=== PATIENT | female | born 1975 | race Caucasian/White ===

== ENCOUNTER → 2021-11-06 | Day surgery (SDC) | payer BC ==
[~2021-11-06] MED LIST: ACETAMINOPHEN 500 MG TAB ONE; CELECOXIB 100 MG CAPSULE ONE; CODEINE 30MG/APAP 300MG TAB ONE; FENTANYL CITR 100 MCG/2 ML ONE; GLYCOPYRROLATE 0.2 MG/ML SYR ONE; KETOROLAC 30 MG/ML INJ ONE; LIDOCAINE 1% MPF 5 ML VIAL ONE; MIDAZOLAM HCL 2 MG/2 ML INJ ONE; Mastisol Adhesive Liq ONE; NEOSTIGMINE 1 MG/ML -10 ML VIAL ONE; NS 0.9% VIAL 10 ML ONE; ONDANSETRON 4 MG/2 ML VIAL ONE; ROCURONIUM 50 MG/5 ML VIAL IV ONE; Ringers Lactate 1,000 ML IV ONE; dexAMETHasone 10 MG/ML VIAL ONE; propofoL 200 MG/20 ML VIAL IV ONE
--- NOTE | 2021-11-06 09:16 | RAD REPORT ---
EXAM DESCRIPTION: Charly Hinojosa (2 Views)11/06/2021 9:12 am CLINICAL HISTORY: Preop for gallbladder surgery. Hypertension COMPARISON: None FINDINGS: The lungs appear clear of acute infiltrate. The heart is normal size IMPRESSION: No acute abnormalities displayed
[2021-11-06 09:30] LABS: Absolute Lymphocytes (CBC) 1.6 K/uL (0.7-4.9); Albumin 3.4 g/dL (3.4-5.0); Bilirubin Direct 0.1 mg/dL (0-0.2); Bilirubin Total 0.6 mg/dL (0.2-1.0); Hematocrit 41.3 % (36.0-45.0); Lymphocytes % 17.7 % (15.3-44.8); MPV 8.3 fL (7.6-11.3); Potassium 4.3 mmol/L (3.5-5.1); Protein, Total 7.7 g/dL (6.4-8.2); RBC Red Blood Cell Count 4.54 M/uL (3.86-4.86)
[2021-11-06 09:45] LABS: SARS-CoV-2 Antigen Rapid Res Negative (Negative)
[2021-11-06] MEDS: CEFOXITIN SODIUM 1 GM/VIAL ONE ×2 (10:09→10:55)
[2021-11-06] MEDS: Ringers Lactate 1,000 ML IV ONE ×5 (11:26→11:40)
--- NOTE | 2021-11-06 11:28 | P.BOP ---
Preoperative diagnosis: symptomatic cholelithiasis Postoperative diagnosis: same Primary procedure: Laparoscopic cholecystectomy Electrical Manufacturing Technician: Yuliana Barajas (Rebecca) Estimated blood loss: <10cc Specimen: gb Findings: as above Anesthesia: General Complications: None Transferred to: Recovery Room Condition: Good
[2021-11-06 11:51] VITALS: O2SAT 100
--- NOTE | 2021-11-06 11:55 | DS ---
Diagnosis: Symptomatic cholelithiasis. Procedure: Laparoscopic cholecystectomy. Disposition: Home. Activity: As tolerated. No heavy lifting. Plan: Followup in my office in 1 week. Call for appointment at [phone]. Keep area dry for 48 hour s, then may shower. Keep Steri-Strips intact. Medications: See orders. DAHIANA/COLLINS Voice ID: [id number] Report ID: [id number]
--- NOTE | 2021-11-06 11:55 | OP ---
Date of Procedure: 11/06/2021 Surgeon: Kwaku Uriostegui MD Research Associate Quality Control Qc: Yuliana [place]. Preoperative Diagnosis: Symptomatic cholelithiasis. Postoperative Diagnosis: Symptomatic cholelithiasis. Procedure: Laparoscopic cholecystectomy Specimen: Gallbladder. Estimated Blood Loss: Less than 10 mL. Anesthesia: General plus local. Indication: This is the case of a 46-year-old patient, who comes to us with above diagnoses. Fully explained the benefits, alternatives, and risks of laparoscopic possible open cholecystectomy, which include, but not limited to infection, bleeding, damage to adjacent structures, anesthesia complicati on, choledocholithiasis, bile leak, pancreatitis, [place], and even . She also understands this may not relieve any symptoms. She may need more than one surgical intervention. She understood, signed a consent. Procedure In Detail: The patient was brought to the operating room, placed in supine position. Anes thesia was done without complication. Abdominal area was prepped and draped in the usual sterile fas hion. Marcaine 0.5% was injected for local anesthetic followed by sharp incision of the skin in the infraumbilical region. The incision was carried down to fascia, which was opened under direct vision . Peritoneum was encountered, opened under direct vision. Vicryl #1 placed inside the fascia. Dominick on trocar was carefully introduced. Pneumoperitoneum was obtained. I placed 3 more trocars, 5 mm ea ch one of them in the right upper quadrant under direct visualization. This allowed me to put a gras per in the fundus of the gallbladder, another grasper in the infundibulum retracting the gallbladder in the inferolateral fashion, exposing the triangle of Calot and obtaining critical view. Cystic farideh t and cystic artery were clearly isolated, freed circumferentially and a connection between those and the gallbladder were clearly identified. I proceeded to ligate those by using at least 3 clips prox imal, 1 clip distal, ligation in the middle. Same was done with the cystic artery. No bile leak. N o bleeding. The gallbladder was removed from liver using Bovie cauterizer and removed from abdominal cavity using EndoCatch through the umbilical incision. The area was inspected once again. No bile leak. No bleeding. At that moment, I proceeded to remove the trocars under direct vision. Deflated the pneumoperitoneum. Closed the fascia with #1 Vicryl. Irrigated subcutaneous tissue, closed that with 3-0 chromic and the skin with steffen. Sponge count and instrument counts correct. The patien t tolerated the procedure well. The patient was sent to recovery in stable condition. DAHIANA/COLLINS Voice ID: [id number] Report ID: [id number]
[2021-11-06 13:40] VITALS: BP 94/65; TEMP 97.8
--- NOTE | 2021-11-06 14:38 | EKG ---
Test Date: 2021-11-06 Test Time: 08:50:40 Parts Representative: LEXY MEASUREMENT RESULTS: Intervals: Rate: 63 SD: 134 QRSD: 80 QT: 438 QTc: 448 Holly: P: 59 SD: 134 QRS: 67 T: 108 INTERPRETIVE STATEMENTS: Normal sinus rhythm Nonspecific ST abnormality Abnormal ECG No previous ECG available for comparison Electronically Signed On 11-06-21 14:37:19 CDT by Josafat Bangura
== END | disposition home or self-care (01) ==
LOC: OR 09:10
PROVIDERS: ATTEND Surgery
PROC: 0FT44ZZ Resection of Gallbladder, Percutaneous Endoscopic Approach (ICD-10-PCS; principal; 2021-11-06 11:00)
DX: K80.10 Calculus of gallbladder with chronic cholecystitis without obstruction (principal); Z20.822 Contact with and (suspected) exposure to COVID-19
CPT/HCPCS: 93005; 85025; 80048; 36415; 80076; 88304; 83690; 71046; 87811; 47562; J2704; J2710; J2250 ×2; J3010 ×2; J1100; J7120 ×2; J0694; J2405